=== PATIENT | female | born 1975 | race Caucasian/White ===

== ENCOUNTER 2023-12-15 16:30 | Emergency (ER) | payer OTHER, MEDICARE ==
[~2023-12-15] VITALS: Ht 172.7 cm; Wt 118.2 kg
[2023-12-15 16:51] VITALS: BP 120/78; PULSE 94; RESP 18; TEMP 97.8; O2SAT 98
[2023-12-15 23:02] LABS: BILIRUBIN,URINE NEGATIVE (Neg); CLARITY,URINE SLIGHTLY CLOUDY (Clear); COLOR,URINE YELLOW (Yellow); GLUCOSE, URINE NEGATIVE (Neg); KETONES,URINE NEGATIVE (Neg); LEUKOCYTE ESTERASE ,URINE NEGATIVE (Neg); NITRITES, URINE NEGATIVE (Neg); OCCULT BLOOD,URINE NEGATIVE (Neg); PROTEIN,URINE NEGATIVE (Neg)
[2023-12-15 23:04] LABS: BASOPHILS % (AUTO) 0.4 % (0-1); EOSINOPHILS # (AUTO) 0.1 X10'3 (0-0.9); EOSINOPHILS % (AUTO) 0.9 % (0-6); HEMATOCRIT 35.8 % (42.0-52.0); HEMOGLOBIN 11.7 g/dl (14.0-17.9); LYMPHOCYTES # (AUTO) 2.8 X10'3 (1.1-4.8); LYMPHOCYTES % (AUTO) 26.2 % (21-51); MEAN CORPUSCULAR HEMOGLOBIN 26.7 PG (27.0-31.0); MEAN CORPUSCULAR HGB CONC 32.7 g/dL (33.0-36.5); MEAN CORPUSCULAR VOLUME 81.6 FL (78-98); MEAN PLATELET VOLUME 8.1 FL (7.4-10.4); MONOCYTES # (AUTO) 0.9 X10'3 (0-0.9); MONOCYTES % (AUTO) 8.7 % (2-12); NEUTROPHILS # (AUTO) 6.9 X10'3 (1.8-7.7); NEUTROPHILS % (AUTO) 63.8 % (42-75); PLATELET COUNT 343 X10'3 (140-440); RED BLOOD COUNT 4.38 X10'6 (4.70-6.10); WHITE BLOOD COUNT 10.8 X10'3 (4.5-11.0)
[2023-12-15 23:08] LABS: UA COLLECTION TYPE CLN CATCH MIDSTREAM
[2023-12-15 23:12] LABS: RBC,URINE 0-2 /HPF (0-2); SQUAMOUS EPITHELIAL CELL,UR FEW /LPF (FEW); WBC,URINE 0-4 /HPF (0-4)
[2023-12-15 23:13] LABS: BACTERIA,URINE FEW /HPF (Neg)
[2023-12-15 23:24] LABS: ALBUMIN 3.1 G/DL (3.4-5.0); ANION GAP 3 (8-16); BLOOD UREA NITROGEN 14 MG/DL (7-18); BUN/CREATININE RATIO 16.1 (10.0-20.0); CALCIUM 8.9 MG/DL (8.5-10.1); CHLORIDE 99 MMOL/L (99-107); CREATININE 0.87 MG/DL (0.60-1.10); GLUCOSE 112 MG/DL (70-104); MAGNESIUM 1.9 MG/DL (1.5-2.4); PRO BRAIN NATRIURETIC PEPTIDE 62 PG/ML (0-125); SODIUM 137 MMOL/L (135-145); TOTAL CARBON DIOXIDE 34.8 MMOL/L (24-32); eCRCL 99 ML/MIN; eGFR > 90 ML/MIN
[2023-12-15 23:25] LABS: URINE AMPHETAMINE SCREEN NEGATIVE (Neg); URINE BARBITUATE SCREEN NEGATIVE (Neg); URINE BENZODIAZEPINES SCREEN NEGATIVE (Neg); URINE CANNABINOID SCREEN NEGATIVE (Neg); URINE COCAINE SCREEN NEGATIVE (Neg); URINE METHADONE SCREEN POSITIVE (Neg); URINE OPIATE SCREEN POSITIVE (Neg); URINE PHENCYCLIDINE SCREEN NEGATIVE (Neg)
[2023-12-16 00:01] LABS: URINE HCG NEGATIVE
[2023-12-16] MEDS ORDERED: LEVO-65 PO (00:15)
[2023-12-16] MEDS ORDERED: levoFLOXACIN 750MG TABLET PO ONE (00:15)
[2023-12-16] MEDS: levoFLOXACIN 750MG TABLET PO ONE (00:47)
[2023-12-16] MEDS ORDERED: TRIA15CR61 TOP (00:53)
[2023-12-16] MEDS ORDERED: ALBU18HF2 INH (00:53)
== END 2023-12-16 00:59 | disposition home or self-care (01) ==
LOC: EDSEX → ER 16:30
DX: R05.9 Cough, unspecified (principal); R30.9 Painful micturition, unspecified; G47.62 Sleep related leg cramps; Z79.2 Long term (current) use of antibiotics; Z79.899 Other long term (current) drug therapy
CPT/HCPCS: 36415; 71045; 80048; 80305; 81001; 81025; 83735; 83880; 84484; 85025; 99284

== ENCOUNTER 2024-01-06 22:45 | Emergency (ER) | payer MEDICAID, MEDICARE, OTHER ==
[~2024-01-06] VITALS: Ht 170.2 cm; Wt 75.0 kg
[~2024-01-06 22:45] MED LIST: ALBU18HF2 INH; TRIA15CR61 TOP
[2024-01-07 01:31] VITALS: TEMP 98.3
[2024-01-07 03:12] VITALS: BP 130/78; PULSE 95; RESP 20; O2SAT 100
[2024-01-07] MEDS: methylnaltrexone br 12mg/0.6ml inj***SubQ only SQ ONE (03:32)
[2024-01-07] MEDS ORDERED: MAGN296S68 PO (04:02)
[2024-01-07] MEDS ORDERED: POLY119P2 PO (04:02)
[2024-01-07] MEDS: bisacodyl 5mg tablet.DR PO ONE (04:56)
== END 2024-01-07 04:59 | disposition home or self-care (01) ==
LOC: ER 22:46 → EDSEX 22:46 → ER 01-07 01:32
DX: K59.00 Constipation, unspecified (principal); R10.84 Generalized abdominal pain; M79.672 Pain in left foot; Z88.8 Allergy status to other drugs, medicaments and biological substances
CPT/HCPCS: 73630; 74018; 96372; 99284; J2212

== ENCOUNTER 2024-01-27 16:55 | Emergency (ER) | payer MEDICAID, MEDICARE ==
[~2024-01-27] VITALS: Ht 170.2 cm; Wt 72.7 kg
[~2024-01-27 16:55] MED LIST changes: +MAGN296S68 PO; +POLY119P2 PO; -TRIA15CR61 TOP
[2024-01-27 17:14] VITALS: BP 180/106; PULSE 103; TEMP 97.5; O2SAT 99
[2024-01-27] MEDS ORDERED: IBUP-1984 PO (20:17)
[2024-01-27] MEDS ORDERED: CYCL-1 PO (20:17)
[2024-01-27 20:28] VITALS: RESP 17
[2024-01-27] MEDS: orphenadrine citrate 60mg/2ml inj. IM ONE (20:28)
[2024-01-27] MEDS: ketorolac tromethamine 15mg/ml inj. IM ONE (20:28)
[2024-01-27] MEDS ORDERED: LIRA0.6P SUBCUT (20:43)
[2024-01-27] MEDS ORDERED: GABA600T PO (20:43)
[2024-01-27] MEDS ORDERED: ALBU18HF2 INH (20:43)
== END 2024-01-27 20:49 | disposition home or self-care (01) ==
LOC: ER 16:56
DX: S96.912A Strain of unspecified muscle and tendon at ankle and foot level, left foot, initial encounter (principal); S96.911A Strain of unspecified muscle and tendon at ankle and foot level, right foot, initial encounter; M25.532 Pain in left wrist; M25.552 Pain in left hip; M25.551 Pain in right hip; R10.2 Pelvic and perineal pain; Z88.8 Allergy status to other drugs, medicaments and biological substances; W18.30XA Fall on same level, unspecified, initial encounter; Y93.89 Activity, other specified; Y92.89 Other specified places as the place of occurrence of the external cause; Y99.8 Other external cause status
CPT/HCPCS: 72110; 72131; 73110; 73521; 73564; 73630; 73660; 96372; 99285; J1885; J2360

== ENCOUNTER 2024-03-17 13:16 | Emergency (ER) | payer MEDICARE, MEDICAID ==
[~2024-03-17] VITALS: Ht 170.2 cm; Wt 81.8 kg
[~2024-03-17 13:16] MED LIST changes: +CYCL-1 PO; +GABA600T PO; +LIRA0.6P SUBCUT
[2024-03-17 13:40] VITALS: TEMP 98
[2024-03-17 14:16] VITALS: BP 161/95; PULSE 83; O2SAT 100
[2024-03-17 14:32] VITALS: RESP 14
[2024-03-17] MEDS ORDERED: FURO-150 PO ×2 (14:32→15:02)
[2024-03-17] MEDS ORDERED: OLME5TAB32 PO ×2 (14:32→15:02)
[2024-03-17] MEDS ORDERED: GABA-530 PO (14:32)
[2024-03-17] MEDS ORDERED: ESTR40VI7 IM (14:32)
[2024-03-17] MEDS ORDERED: GABA300C PO (15:02)
[2024-03-17] MEDS ORDERED: LIRA0.6P SUBCUT (15:02)
== END 2024-03-17 15:19 | disposition home or self-care (01) ==
LOC: ER 13:16
DX: M79.661 Pain in right lower leg (principal); M79.672 Pain in left foot; M79.671 Pain in right foot; E11.9 Type 2 diabetes mellitus without complications; I10 Essential (primary) hypertension; Z88.1 Allergy status to other antibiotic agents; Z79.899 Other long term (current) drug therapy
CPT/HCPCS: 73590; 73630; 99284

== ENCOUNTER 2024-03-25 13:51 | Emergency (ER) | payer MEDICARE, MEDICAID ==
[~2024-03-25] VITALS: Ht 170.2 cm; Wt 72.7 kg
[~2024-03-25 13:51] MED LIST changes: -CYCL-1 PO; +ESTR40VI7 IM; +FURO-150 PO; +GABA-530 PO; +GABA300C PO; -GABA600T PO; -MAGN296S68 PO; +OLME5TAB32 PO; -POLY119P2 PO
[2024-03-25 14:02] VITALS: TEMP 98.1
[2024-03-25 15:25] VITALS: BP 131/78; PULSE 81; RESP 16; O2SAT 97
== END 2024-03-25 19:26 | disposition left against medical advice (07) ==
LOC: ER 13:51
DX: M79.672 Pain in left foot (principal); M79.671 Pain in right foot; Z88.1 Allergy status to other antibiotic agents; Z79.899 Other long term (current) drug therapy
CPT/HCPCS: 73630; 99284